=== PATIENT | female | born 1995 | race Caucasian/White ===

== ENCOUNTER → 2021-10-19 | Outpatient (CLI) | payer MEDICAID, SELFPAY ==
[2021-10-19 14:19] LABS: hCG Titer Quant., Serum 5620 mIU/mL (1-3)
== END | disposition home or self-care (01) ==
LOC: LAB 13:04
PROVIDERS: PCP Family Medicine; Referring Provider Obstetrics & Gynecology; Visit Provider Obstetrics & Gynecology
DX: N91.2 Amenorrhea, unspecified (principal)
CPT/HCPCS: 36415; 84702

== ENCOUNTER → 2021-10-23 | Outpatient (CLI) | payer MEDICAID, SELFPAY ==
--- NOTE | 2021-10-23 09:00 | US_ITS ---
STUDY: FIRST TRIMESTER OBSTETRICAL ULTRASOUND REASON FOR EXAM: Female, 26 years old dating -- HS OF MISCARRIAGE ON09/05 LMP: Unknown. TECHNIQUE: Transvaginal TECHNICAL QUALITY: Adequate. PRIOR ULTRASOUND: None. FINDINGS: There is visualization of a single gestational sac in a normal intrauterine position. The mean sac diameter (MSD) measures 1.42 cm, indicating an estimated gestational age (EGA) of 6 weeks, 2 days. The gestational sac shape is within normal limits. There is a visualized yolk sac. The yolk sac measures 2.9 mm. The placenta is non-visualized. There is visualization of a live embryo. The crown-rump length (CRL) measures 2.5 mm, indicating an estimated gestational age (EGA) of 6 weeks, 0 days. There is demonstrated cardiac activity with a heart rate of 102 bpm. The estimated gestation age (EGA) by US is 6 weeks, 1 days. The estimated date of delivery (SIENNA) by US is 06/17/2022. The uterus measures 9.2 cm x 6.2 cm x 4.4 cm. There is no demonstrated uterine fibroid. The cervix is closed. The right ovary measures 3.3 cm x 3.7 cm x 1.8 cm. There is no right ovarian cyst. There is no visualized right adnexal mass or complex lesion. The left ovary measures 3.4 cm x 2.69 x 1.6 cm. There is no left ovarian cyst. There is no visualized left adnexal mass or complex lesion. There is no fluid in the cul de sac. US/Transvaginal w/Preg US IMPRESSION: Single live intrauterine gestation with a mean gestational age of 6 weeks and 1 day. Electronically Signed: Dank Irizarry MD at 9:42 EDT ,
== END | disposition home or self-care (01) ==
LOC: OPUS 08:59
PROVIDERS: PCP Family Medicine; Visit Provider Obstetrics & Gynecology
DX: Z34.90 Encounter for supervision of normal pregnancy, unspecified, unspecified trimester (principal)
CPT/HCPCS: 76817

== ENCOUNTER → 2021-11-09 | Outpatient (CLI) | payer MEDICAID, SELFPAY ==
[2021-11-08 11:06] LABS: Amphetamine Urine VISTA NEGATIVE (<1000 ng/mL); Barbiturate Urine VISTA NEGATIVE (< 200 ng/mL); Benzodiazepine Urine VISTA NEGATIVE (< 200 ng/mL); Cocaine Urine VISTA NEGATIVE (< 300 ng/mL); Ecstacy Urine VISTA NEGATIVE (< 500 ng/mL); Methadone Urine VISTA NEGATIVE (< 300 ng/mL); PCP Urine VISTA NEGATIVE (< 25 ng/mL); THC Urine VISTA NEGATIVE (< 50 ng/mL); Vista UDS pH Range 6
[2021-11-10 00:06] LABS: Chlamydia By Nucleic Acid AMP Negative (Negative)
[2021-11-10 11:36] LABS: Gonococcus By Nucleic Acid AMP Negative (Negative)
== END | disposition home or self-care (01) ==
LOC: LABSPEC 09:28
PROVIDERS: PCP Family Medicine; Visit Provider Obstetrics & Gynecology
DX: Z34.90 Encounter for supervision of normal pregnancy, unspecified, unspecified trimester (principal)
CPT/HCPCS: 80307; 87086; 87088; 87491; 87591

== ENCOUNTER → 2021-11-16 | Outpatient (CLI) | payer MEDICAID, SELFPAY ==
[2021-11-16 10:35] LABS: Absolute Neutrophil Count 4.3 X10^3/uL (2.0-7.7); Basophil# 0.01 X10^3/uL; Basophil% 0.1 % (0-1); Eosinophil# 0.06 X10^3/uL; Eosinophils% 0.9 % (0-5); Hematocrit 34.3 % (37-47); Hemoglobin 11.7 g/dL (12.0-15.0); Lymphocyte % 32.8 % (19-41); Mean Corp Hgb Conc 34.1 g/dL (32-36); Mean Platelet Vol. 10.9 fl (6.2-12.0); Monocyte# 0.37 X10^3/uL; Monocyte% 5.3 % (0-10); NRBC Flagged by Analyzer 0 % (0-5); Neutrophil # 4.26 X10^3/uL (2.7-7.7); Neutrophil % 60.6 % (47-70); Platelet Count 239 K/mm3 (150-450); RBC Distribution Width CV 12.1 % (11.6-14.6); RBC Distribution Width SD 40.7 fl (35.1-43.9); Red Blood Count 3.77 M/mm3 (4.2-5.4)
[2021-11-16 11:09] LABS: NATERA MAILED SPECIMEN
[2021-11-16 11:39] LABS: HIV - WCH Non-Reactive (Nonreactive); Hepatitis B Surface Antigen Non-Reactive (Nonreactive); Hepatitis C Antibody Non-Reactive (Nonreactive); Rubella IgG Reactive (Nonreactive); Syphilis Antibodies Non-reactive
== END | disposition home or self-care (01) ==
LOC: LAB 09:58
PROVIDERS: PCP Family Medicine; Referring Provider Obstetrics & Gynecology; Visit Provider Obstetrics & Gynecology
DX: Z34.81 Encounter for supervision of other normal pregnancy, first trimester (principal)
CPT/HCPCS: 36415; 85025; 86703; 86762; 86780; 86803; 86850; 86900; 86901; 87340

== ENCOUNTER → 2022-03-29 | Outpatient (CLI) | payer MEDICAID, SELFPAY ==
[2022-03-29 09:25] LABS: Absolute Lymphocyte Count 2.59 X10^3/uL (0.83-4.51); Absolute Neutrophil Count 5.2 X10^3/uL (2.0-7.7); Basophil# 0.02 X10^3/uL; Basophil% 0.2 % (0-1); Eosinophil# 0.09 X10^3/uL; Eosinophils% 1.1 % (0-5); Hematocrit 35.3 % (37-47); Hemoglobin 11.6 g/dL (12.0-15.0); Lymphocyte # 2.59 X10^3/ul (0.83-4.51); Lymphocyte % 30.7 % (19-41); Mean Corp Hgb Conc 32.9 g/dL (32-36); Mean Corpuscular Hgb 31.1 pg (27.0-32.0); Mean Corpuscular Volume 94.6 fL (81-99); Mean Platelet Vol. 10.2 fl (6.2-12.0); Monocyte# 0.45 X10^3/uL; Monocyte% 5.3 % (0-10); NRBC Flagged by Analyzer 0 % (0-5); Neutrophil # 5.24 X10^3/uL (2.7-7.7); Neutrophil % 62.1 % (47-70); Platelet Count 267 K/mm3 (150-450); RBC Distribution Width SD 41.6 fl (35.1-43.9); Red Blood Count 3.73 M/mm3 (4.2-5.4); White Blood Count 8.4 K/mm3 (4.4-11.0)
[2022-03-29 09:53] LABS: Glucose Challenge Gest 1H 50g 106 mg/dL (70-140)
== END | disposition home or self-care (01) ==
LOC: LAB 09:02
PROVIDERS: Visit Provider Obstetrics & Gynecology
DX: O09.90 Supervision of high risk pregnancy, unspecified, unspecified trimester (principal)
CPT/HCPCS: 36415; 82950; 85025

== ENCOUNTER → 2022-04-25 | Outpatient (CLI) | payer MEDICAID, SELFPAY ==
--- NOTE | 2022-04-25 08:03 | US_ITS ---
STUDY: SECOND AND THIRD TRIMESTER OBSTETRICAL ULTRASOUND - LIMITED REASON FOR EXAM: Female, 27 years old growth LMP: 09/10/2021. PRIOR ULTRASOUND: Comparison made with prior study 10/23/2021. TECHNIQUE: Transabdominal TECHNICAL QUALITY: Adequate. FINDINGS: There is a single intrauterine fetus. The fetus is in a cephalic presentation. There is demonstrated cardiac activity with a heart rate of 152 bpm. There is a normal amniotic fluid volume. The largest amniotic fluid pocket measures 5.23 cm cm. The amniotic fluid index (DANIEL) is 15.1 cm. The placenta is anterior in location and is not low lying. There are Grade 1 placental changes. The cervix measures 3.9 cm in length. BIOMETRY: BPD: 7.95 cm: 31 weeks, 6 days HC: 29.55 cm: 32 weeks, 5 days AC: 27.51 cm: 31 weeks, 4 days FL: 6.07 cm: 31 weeks, 4 days Age by LMP: 32 weeks, 3 days. SIENNA by LMP: 06/17/2022. age by prior US: 32 weeks, 3 days. SIENNA by prior US: 06/17/2022 age by current US: 32 weeks, 1 days. SIENNA by current US: 06/19/2022. Estimated weight: 1824 grams, +/- 274 grams, 21 percentile. US/OB Limited With Biometrics IMPRESSION: Single live uterine gestation with mean gestational age of 32 weeks and 3 days. The measurements obtained today fall within the normal expected range. Electronically Signed: Dank Irizarry MD at 12:27 EST ,
== END | disposition home or self-care (01) ==
LOC: US 08:02
PROVIDERS: Visit Provider Obstetrics & Gynecology
DX: Z86.16 Personal history of COVID-19 (principal); Z3A.32 32 weeks gestation of pregnancy
CPT/HCPCS: 76816

== ENCOUNTER → 2022-05-20 | Outpatient (CLI) | payer MEDICAID, SELFPAY | END | disposition home or self-care (01) | PROVIDERS: Visit Provider Registered Nurse | DX: O09.90 Supervision of high risk pregnancy, unspecified, unspecified trimester (principal) | CPT/HCPCS: 87081 ==

== ENCOUNTER → 2022-05-27 | Outpatient (CLI) | payer MEDICAID, SELFPAY ==
--- NOTE | 2022-05-27 12:16 | US_ITS ---
STUDY: SECOND AND THIRD TRIMESTER OBSTETRICAL ULTRASOUND - LIMITED REASON FOR EXAM: Female, 27 years old growth -- 36 weeks -- COVID DURING LMP: 09/10/2021. PRIOR ULTRASOUND: Comparison is made with prior study 04/25/2022. TECHNIQUE: Transabdominal TECHNICAL QUALITY: Adequate. FINDINGS: There is a single intrauterine fetus. The fetus is in a cephalic presentation. There is demonstrated cardiac activity with a heart rate of 144 bpm. There is a normal amniotic fluid volume. The largest amniotic fluid pocket measures 4.9 cm x 2.9 cm. The amniotic fluid index (DANIEL) is 14.9 cm. The placenta is anterior in location and is not low lying. There are Grade 1 placental changes. The cervix measures 3.1 cm in length. BIOMETRY: BPD: 8.52 cm: 34 weeks, 2 days HC: 32 cm: 36 weeks, 0 days AC: 32.18 cm: 36 weeks, 1 days FL: 6.77 cm: 34 weeks, 5 days Age by LMP: 37 weeks, 0 days. SIENNA by LMP: 06/17/2022. age by prior US: 36 weeks, 5 days. SIENNA by prior US: 06/18/2022. age by current US: 35 weeks, 3 days. SIENNA by current US: 06/28/2022. Estimated weight: 2708 grams, +/- 406 grams, 21.3 percentile. US/OB Limited With Biometrics IMPRESSION: Single live uterine gestation with a mean gestational age of 36 weeks and 5 days. The measurements obtained today fall within the normal expected range. Electronically Signed: Dank Irizarry MD at 15:48 EST ,
== END | disposition home or self-care (01) ==
LOC: OPUS 12:14
PROVIDERS: Referring Provider Obstetrics & Gynecology; Visit Provider Obstetrics & Gynecology
DX: Z34.93 Encounter for supervision of normal pregnancy, unspecified, third trimester (principal); Z3A.36 36 weeks gestation of pregnancy; Z86.16 Personal history of COVID-19
CPT/HCPCS: 76816

== ENCOUNTER 2022-05-29 17:20 | Observation (INO) | payer MEDICAID, SELFPAY ==
[2022-05-29 16:59] VITALS: BP 115/73; PULSE 73; TEMP 36.8; O2SAT 98
[2022-05-29 17:05] VITALS: PULSE 74; O2SAT 97
[2022-05-29 17:15] VITALS: BMI 25.7
[2022-05-29] MEDS: Lactated Ringers 1,000 ML 50 ML IV (17:35)
[2022-05-29 17:57] LABS: Absolute Lymphocyte Count 2.72 X10^3/uL (0.83-4.51); Absolute Neutrophil Count 6.9 X10^3/uL (2.0-7.7); Basophil# 0.03 X10^3/uL; Basophil% 0.3 % (0-1); Eosinophil# 0.09 X10^3/uL; Eosinophils% 0.8 % (0-5); Hematocrit 34.9 % (37-47); Hemoglobin 12.1 g/dL (12.0-15.0); Lymphocyte # 2.72 X10^3/ul (0.83-4.51); Lymphocyte % 25.6 % (19-41); Mean Corp Hgb Conc 34.7 g/dL (32-36); Mean Corpuscular Hgb 31.3 pg (27.0-32.0); Mean Corpuscular Volume 90.2 fL (81-99); Mean Platelet Vol. 11.3 fl (6.2-12.0); Monocyte# 0.84 X10^3/uL; Monocyte% 7.9 % (0-10); NRBC Flagged by Analyzer 0 % (0-5); Neutrophil # 6.88 X10^3/uL (2.7-7.7); Neutrophil % 64.8 % (47-70); Platelet Count 247 K/mm3 (150-450); RBC Distribution Width CV 12.9 % (11.6-14.6); RBC Distribution Width SD 42.3 fl (35.1-43.9); Red Blood Count 3.87 M/mm3 (4.2-5.4); White Blood Count 10.6 K/mm3 (4.4-11.0)
[2022-05-29 18:27] LABS: Syphilis Antibodies Non-reactive
[2022-05-29 19:26] VITALS: BP 111/70; PULSE 72; TEMP 36.9
[2022-05-29 21:23] VITALS: BP 125/72; PULSE 74; TEMP 36.9
[2022-05-29 23:08] VITALS: BP 104/57; PULSE 80; TEMP 36.2; O2SAT 99
[2022-05-29] MEDS: LACTATED RINGERS 500 ML 999 ML IV (23:24)
[2022-05-30] VITALS (7 sets, daily range): BP systolic 94–107; BP diastolic 54–59; PULSE 61–84; TEMP 36.5; O2SAT 96–97
--- NOTE | 2022-05-30 02:48 | PN.OBGYN_ITS ---
Subjective Subjective Pt with painful contractions since 4pm yesterday. +fm, no lof, no vb. Objective Data Objective Data Vital Signs: Vital Signs Temp Pulse BP Pulse Ox 97.7 F L 74 106/59 L 96 05/30/22 02:08 05/30/22 02:08 05/30/22 02:08 05/30/22 02:08 Weight: 140 lb 6.951 oz Body Mass Index (BMI) 25.7 Intake & Output: Intake and Output for Last 24 Hours 05/28/22 05/29/22 05/30/22 23:59 23:59 23:59 Intake Total 790 / 790 Output Total 500 / 500 Balance 290 / 290 Lab / Micro Data Attestation: I reviewed the patient's lab results. Result Diagrams: 05/29/22 17:35 Labs: Laboratory Results - last 24 hr 05/29/22 17:35: WBC 10.6, RBC 3.87 L, Hgb 12.1, Hct 34.9 L, MCV 90.2, MCH 31.3, MCHC 34.7, RDW Std Deviation 42.3, RDW Coeff of Jaquan 12.9, Plt Count 247, MPV 11.3, Immature Gran % (Auto) 0.600, Neut % (Auto) 64.8, Lymph % (Auto) 25.6, Anderson % (Auto) 7.9, Eos % (Auto) 0.8, Baso % (Auto) 0.3, Absolute Neuts (auto) 6.9, Absolute Lymphs (auto) 2.72, Nucleated RBC % 0 05/29/22 17:35: Blood Type A POSITIVE, Antibody Screen NEGATIVE 05/29/22 17:35: Syphilis Total Ab Non-reactive ROS Cardiovascular Cardiovascular: Denies chest pain Respiratory/Chest Respiratory/Chest: Denies change in mental status Gastrointestinal Gastrointestinal: Denies diarrhea, nausea or vomiting Genitourinary Genitourinary: Denies change in urinary stream Musculoskeletal Musculoskeletal: Reports none Integumentary Integumentary: Reports none Neurologic Neurologic: Reports none Psychiatric Psychiatric: Reports none Endocrine Endocrinology: Reports none Hematologic/Lymphatic Hematologic/Lymphatic: Reports none Allergic/Immunologic Allergic/Immunologic: Reports none Physical Exam Const alert, oriented x3 and no apparent distress HEENT normocephalic Eyes PERRL Neck full ROM Resp normal respiratory effort, normal air movement, no retractions and no use of accessory muscles Effort and Inspection: able to speak in complete sentences GI soft to palpation Palpation: soft Manual OB Exam: presentation cephalic, dilated 4.5, effaced 90 and station -3 Uterus Palpation: Negative for uterus tender Amniotic Fluid: no amniotic fluid noted Extremity normal to inspection Neuro oriented x3 NST FHR Rate Baby A Variability:: Moderate Accelerations:: 15 x 15 Decelerations:: None NST Reactive:: Yes FHR Category:: Category I Uterine Activity:: q8-12minutes, Assessment Assessment Detail: strip reviewed with RN, reassuring status. ok for d/c home Assessment & Plan (1) Irregular contractions: COMMENT: without cervical change, not consistent with labor patterns. discussed at 37.3 without medical indications will not AROM or add pitocin for labor augmentation/induction. reviewed possibility of elective IOL after 39 weeks and expectant management currently. PLAN: d/c home with labor precautions maternal and status reassuring and stable for d/c (2) : QUALIFIERS: Weeks of gestation: 37 weeks Qualified Code(s): Z3A.37 - 37 weeks gestation of COMMENT: gbs neg. NIPT low risk, carrier negative , nl anatomy. 04/25 nl growth 21st%, 1824gms +/- 274gms. (3) Supervision of high risk , antepartum: COMMENT: PRR SIENNA 06/17/2022 surpise PC:Wes Teague Jace. Sp:Ho (4) Precipitous delivery: COMMENT: has been induced due to this in the past. would like 39 week IOL
== END 2022-05-30 03:10 | disposition home or self-care (01) ==
LOC: WPOUT 05-30 09:49 → WP 05-31 09:33
PROVIDERS: Admitting Provider Registered Nurse; Visit Provider Registered Nurse
DX: O47.1 False labor at or after 37 completed weeks of gestation (principal); Z34.93 Encounter for supervision of normal pregnancy, unspecified, third trimester; Z3A.36 36 weeks gestation of pregnancy; Z86.16 Personal history of COVID-19; Z3A.37 37 weeks gestation of pregnancy
CPT/HCPCS: 96360; 59025; 59050; 76816; 85025; 86780; 86850; 86900; 86901; 96372; 99218; 99221; J7120; G0378

== ENCOUNTER 2022-06-04 13:20 | Inpatient (IN) | payer MEDICAID, SELFPAY ==
[2022-06-04] VITALS (12 sets, daily range): BP systolic 99–135; BP diastolic 46–81; PULSE 53–69; RESP 14–16; TEMP 36.3–37.2; O2SAT 96–97; BMI 26.5
[2022-06-04 13:21] LABS: ROM Internal Control Test YES-OK TO RESULT pt. (Internal QC)
[2022-06-04 13:22] LABS: ROM Patient Test POSITIVE (Negative)
[2022-06-04] MEDS: Lactated Ringers 1,000 ML 200 ML IV (13:30)
[2022-06-04 13:50] LABS: Absolute Lymphocyte Count 2.69 X10^3/uL (0.83-4.51); Absolute Neutrophil Count 6.4 X10^3/uL (2.0-7.7); Basophil# 0.01 X10^3/uL; Basophil% 0.1 % (0-1); Eosinophil# 0.16 X10^3/uL; Eosinophils% 1.6 % (0-5); Hematocrit 34.3 % (37-47); Hemoglobin 11.4 g/dL (12.0-15.0); Lymphocyte # 2.69 X10^3/ul (0.83-4.51); Lymphocyte % 26.5 % (19-41); Mean Corp Hgb Conc 33.2 g/dL (32-36); Mean Corpuscular Hgb 30.2 pg (27.0-32.0); Mean Platelet Vol. 11.5 fl (6.2-12.0); Monocyte# 0.83 X10^3/uL; Monocyte% 8.2 % (0-10); NRBC Flagged by Analyzer 0 % (0-5); Neutrophil # 6.39 X10^3/uL (2.7-7.7); Platelet Count 234 K/mm3 (150-450); RBC Distribution Width CV 13.2 % (11.6-14.6); RBC Distribution Width SD 42.3 fl (35.1-43.9); Red Blood Count 3.77 M/mm3 (4.2-5.4); White Blood Count 10.1 K/mm3 (4.4-11.0)
[2022-06-04] MEDS: Naproxen 500 MG Tablet PO (13:59)
--- NOTE | 2022-06-04 16:25 | PCM.HP.OB ---
HPI - General General Date of Admission: 06/04/22 HPI Narrative BETHANIE GARCIA, is a 27 y/o who presents to L&D in active labor and has a history of precipitous delivery. She was found to be 6 cm and quickly changed to 9 cm within 10 minutes. Maternal Data Information SIENNA Calculator Estimated Delivery Date Method Current WG Current Estimate 06/17/22 Ultrasound #1 38w 1d PFSH PFSH Medical History Acute pharyngitis, unspecified Headache HPV (human papilloma virus) infection Home Medications ondansetron HCl 4 mg tablet 4 mg PO Q6H PRN nausea and vomiting 30 days #60 tabs 03/01/22 [Rx Last Taken Unknown] PNV 153-FA 400 mcg-om3 35 mg-dha 25 mg-epa 5 mg-fish oil chew tablet ( Gummies) 2 tab PO DAILY 05/29/22 [History Last Taken 05/29/22 04:30] aspirin 81 mg chewable tablet 81 mg PO DAILY 05/29/22 [History Last Taken 05/29/22 04:30] Allergy/AdvReac Type Severity Reaction Status Date / Time Penicillins Allergy Unknown unknown Verified 06/04/22 13:12 Family History Mother CVA (cerebral vascular accident) Hypertension Bipolar 1 disorder Social History adopted: No household members: spouse number of children: 3 current occupational status: unemployed current occupation: [employer] pets and animals: Yes pets and animals: dog(s) Smoking Status: Never smoker alcohol intake: never substance use type: does not use caffeine: No do you feel safe at home: Yes additional social history: Ho History 6 Elective abortions Hx Para 3 Spontaneous abortions 2 Hx # Term Pregnancies Ectopic pregnancies Hx # Pregnancies Multiple births # of living children 3 Past Pregnancies Del. Date Name GA/Weeks Outcome Route Bth Weight Gen Labor Lgth Anesthesia Del Locatn Provider FOB Unknown 08/07/15 Ho 38 live - full term vacuum 7# 6oz Male <1 hour Lenka Teague Unknown 05/01/18 Wes 39 live - full term 7# 6oz Male 2 hours other Corwin Teague Unknown 08/16/19 Constantin live - full term 8# 4oz Male 2 hr other Corwin Teague Unknown SAB 05/24/2021 Unknown SAB 09/05/21 Delivery Date: Last Updated by: Albania Holley NP INSURANCE VERIFY REP-Julio Rapid delivery. Delivery Date: Last Updated by: Albania Holley NP, NP-Julio Nitrous. IOL. Delivery Date: Last Updated by: Albania Holley NP, NP-Julio IOL Delivery Date: Last Updated by: Albania Holley NP, NP-Julio Took methotrexate Delivery Date: Last Updated by: Albania Holley NP, NP-Julio no intervention Visit Details Expected Delivery Route/Plan Labor Preferences- CB/BF classes: no labor support person: Ho labor intervention preferences: limited pain management options preferred: nitrous cut cord/dad catch: yes : yes PP control planned: BS discussed possible routes of delivery and associated risks: [] special requests: [] Plans Covid status: + Feb 2022 Flu vaccine: declines Tdap vaccine: given Rhogam: na LARC form signed: yes Problem list reviewed and updated with the most current plan of care details and appropriate orders placed. Relevant counseling for the gestational age provided. Continue routine care and follow up unless otherwise noted in visit notes/problem list details OB Flowsheet Initial Weight: 121 lb Date <del>?</del> EGA Weight BP Urine Prot <del>?</del> Glucose FHR FuHt Pres Dilation <del>?</del> Effaced St Visit Note 11/08/21 <del>?</del> 8w 3d 121 lb (+0 oz) 94/60 <del>?</del> 150 <del>?</del> SM- CRL cons with LMP SM- CRL 1.48cm 12/06/21 <del>?</del> 12w 3d 119 lb (-2 lb) 90/60 Trace <del>?</del> Negative <del>?</del> JV- handheld bedside ultrasound detected heart beat. No complaints today. sarah hamlin. anatomy scan ordered, 01/03/22 <del>?</del> 16w 3d 118 lb 6 oz (-2 lb 10 oz) 100/60 Trace <del>?</del> Negative 130 <del>?</del> JV- pt still vomiting often. interested in home health nurse for sarah 02/01/22 <del>?</del> 20w 4d 124 lb (+3 lb) 99/66 Negative <del>?</del> Negative 145 <del>?</del> SM- no vb lof cramping nausea improving. 03/01/22 <del>?</del> 24w 4d 128 lb (+7 lb) 100/62 Negative <del>?</del> Negative 145 24 23 <del>?</del> SM- no vb lof cramping desires sterilization 03/29/22 <del>?</del> 28w 4d 133 lb (+12 lb) 102/68 Negative <del>?</del> Negative 145 29 <del>?</del> SM- no vb lof good fm overall no regular ctx tital 19 signed 04/12/22 <del>?</del> 30w 4d 135 lb 8 oz (+14 lb 8 oz) 117/72 Negative <del>?</del> Negative 169 30 <del>?</del> JV- no lof, vaginal bleeding, or dec fm. pt had covid last month. Starting baby asa and otaining growth scan for next week and 36 weeks 04/25/22 <del>?</del> 32w 3d 135 lb 6 oz (+14 lb 6 oz) 116/72 Negative <del>?</del> Negative 138 31 <del>?</del> MH-NO VB, LOF. Good FM. More RL pain. Larc. 05/06/22 <del>?</del> 34w 0d 139 lb 8 oz (+18 lb 8 oz) 111/76 Negative <del>?</del> Negative 145 33 <del>?</del> LC-no vb,lof,ctx. good fm. no concerns. will repeat growth scan in 2 weeks. 21% for growth at 32 weeks. 05/20/22 <del>?</del> 36w 0d 140 lb 2 oz (+19 lb 2 oz) 124/84 Negative <del>?</del> Negative 110 32 0 <del>?</del> 20 -3 LC- no vb. occ ctx, not consistent. dec FM. has growth scan ordered. NST will be obtained in office today. GBS obtained today 05/27/22 <del>?</del> 37w 0d 141 lb 2 oz (+20 lb 2 oz) 120/80 Negative <del>?</del> Negative 140 34 2 <del>?</del> 50 -2 LC- dec FM. obtaining NST. has growth scan scheduled this afternoon. no lof, vb. inconsistent ctx. ROS Constitutional Constitutional: Denies change in weight, fatigue, fever(s), headache(s), poor appetite or weakness Eyes Eyes: Denies blurry vision, change in vision, seeing flashes or spots in vision ENT HEENT: Denies dizziness, headache(s), loss taste/smell or sore throat Cardiovascular Cardiovascular: Denies chest pain, dizziness, dyspnea, irregular heart rhythm, leg edema, palpitations, rapid heart rate or vomiting Respiratory/Chest Respiratory/Chest: Denies chest tightness, cough, dyspnea or breast pain Gastrointestinal Gastrointestinal: Denies abdominal pain, anorexia, constipation, cramping, diarrhea, hemorrhoids, vomiting or weight changes Genitourinary Genitourinary: Denies dysuria, flank pain, genital lesions, genital pain, urinary frequency or urinary urgency Musculoskeletal Musculoskeletal: Denies back pain, difficulty walking, joint pain, limited range of motion, muscle cramps or numbness Integumentary Integumentary: Denies lesions or unusual bruising Neurologic Neurologic: Denies abnormal movements, abnormal speech, dizziness, numbness, seizure-like activity or syncope Psychiatric Psychiatric: Denies anxiety, behavioral changes, change in appetite, change in libido, cognitive impairment, confusion, depression, difficulty concentrating, hallucinations or suicidal thoughts Endocrine Endocrinology: Denies excessive sweating, polydipsia or polyuria Hematologic/Lymphatic Hematologic/Lymphatic: Denies easy bleeding, easy bruising or lymphadenopathy Allergic/Immunologic Allergic/Immunologic: Denies itchy eyes, lip swelling, seasonal rhinorrhea, rhinitis, throat swelling, tongue swelling, eczemia, wheezing or asthma Vital Signs Vital Signs Vital Signs: 06/04/22 13:10 06/04/22 13:10 06/04/22 13:10 Temperature Temperature Source Pulse Rate 68 68 Blood Pressure BP Systolic BP Diastolic Pulse Ox 96 06/04/22 13:10 06/04/22 13:10 06/04/22 13:47 Temperature 98.6 F Temperature Source Pulse Rate Blood Pressure 135/64 H BP Systolic 135 BP Diastolic 64 Pulse Ox 96 06/04/22 13:47 06/04/22 13:47 06/04/22 13:47 Temperature 98.3 F Temperature Source Temporal Pulse Rate 67 Blood Pressure BP Systolic BP Diastolic Pulse Ox 06/04/22 14:02 06/04/22 14:02 06/04/22 14:17 Temperature Temperature Source Pulse Rate 67 Blood Pressure 123/60 H 120/62 BP Systolic 123 120 BP Diastolic 60 62 Pulse Ox 06/04/22 14:17 06/04/22 14:17 06/04/22 14:17 Temperature 98.0 F Temperature Source Temporal Pulse Rate 65 Blood Pressure BP Systolic BP Diastolic Pulse Ox 06/04/22 14:32 06/04/22 14:32 06/04/22 14:32 Temperature Temperature Source Temporal Pulse Rate 57 L Blood Pressure 123/70 H BP Systolic 123 BP Diastolic 70 Pulse Ox 06/04/22 14:32 06/04/22 14:47 06/04/22 14:47 Temperature 98.3 F Temperature Source Pulse Rate 54 L Blood Pressure 127/81 H BP Systolic 127 BP Diastolic 81 Pulse Ox 06/04/22 15:02 06/04/22 15:02 06/04/22 14:47 Temperature Temperature Source Temporal Pulse Rate 62 Blood Pressure 120/72 BP Systolic 120 BP Diastolic 72 Pulse Ox 06/04/22 14:47 06/04/22 15:17 06/04/22 15:17 Temperature 98.9 F Temperature Source Pulse Rate 56 L Blood Pressure 123/65 H BP Systolic 123 BP Diastolic 65 Pulse Ox 06/04/22 15:32 06/04/22 15:32 06/04/22 15:32 Temperature Temperature Source Temporal Pulse Rate 57 L Blood Pressure 130/71 H BP Systolic 130 BP Diastolic 71 Pulse Ox 06/04/22 15:32 06/04/22 15:47 06/04/22 15:47 Temperature 98.5 F Temperature Source Pulse Rate 69 Blood Pressure 124/68 H BP Systolic 124 BP Diastolic 68 Pulse Ox 06/04/22 15:47 06/04/22 15:47 Temperature 98.5 F Temperature Source Temporal Pulse Rate Blood Pressure BP Systolic BP Diastolic Pulse Ox Weight Weight: 145 lb Body Mass Index (BMI) 26.5 Physical Exam Const alert, oriented x3, no apparent distress and healthy appearing General Appearance: cooperative; Negative for anxious HEENT normocephalic Face and Sinus: normal facial exam Eyes EOMs intact bilaterally and no scleral icterus General Eye: normal appearance of both eyes Neck full ROM and supple Lymph Lymphatic: no lymphadenopathy noted Chest Chest: abnormal inspection of the chest Resp normal respiratory effort Effort and Inspection: able to speak in complete sentences Cardio regular rate GI soft to palpation and non-tender Inspection: gravid Palpation: soft; Negative for tender external exam normal Amniotic Fluid: ROM+plus Back/Spine no CVA tenderness Extremity normal to inspection, full ROM and no clubbing, cyanosis or edema General Extremity: Negative for calf tenderness or edema Skin Lesions: no lesions Rashes: no rashes Psych mental status grossly normal Labs Labs Labs: Blood Type A POSITIVE Antibody Screen NEGATIVE Hct 34.3 % (37-47) L Hgb 11.4 g/dL (12.0-15.0) L Pap Smear Positive Obstetrics US Syphilis Total Ab Non-reactive Rubella IgG Antibody Reactive (Nonreactive) Hep Bs Antigen Non-Reactive (Nonreactive) Chlamydia DNA (BERNARD) Negative (Negative) Neisseria gonorrhoeae DNA (BERNARD) Negative (Negative) HIV 1&2 Antibody Non-Reactive (Nonreactive) Glucose 1 Hr 50 gm 106 mg/dL (70-140) Rhogam given: No Assessment & Plan (1) : QUALIFIERS: Weeks of gestation: 37 weeks Qualified Code(s): Z3A.37 - 37 weeks gestation of COMMENT: gbs neg. NIPT low risk, carrier negative , nl anatomy. 04/25 nl growth 21st%, 1824gms +/- 274gms. (2) Supervision of high risk , antepartum: COMMENT: PRR SIENNA 06/17/2022 surpise PC:Wes Teague Jace. Sp:Ho (3) History of HPV infection: COMMENT: on pap 05/2021 [place]. repeat PAP PP (4) Precipitous delivery: COMMENT: has been induced due to this in the past. would like 39 week IOL (5) Sterilization: COMMENT: 03/29- title 19 (6) History of 2019 novel coronavirus disease (COVID-19): COMMENT: 02/14/22 starting baby asa and ordering growths at 32 and 36 weeks PLAN: Plan Patient presents IAL, plan expectant management for , Pain management: plans epidural, however due to how quickly she is moving there will not be time for this GBS negative . Management of any complications: none I have reviewed the [facility] and made any clinically relevant updates.
--- NOTE | 2022-06-04 16:27 | EX.PCM.OBRPT ---
Assessment & Plan (1) : QUALIFIERS: Weeks of gestation: 37 weeks Qualified Code(s): Z3A.37 - 37 weeks gestation of COMMENT: gbs neg. NIPT low risk, carrier negative , nl anatomy. 04/25 nl growth 21st%, 1824gms +/- 274gms. (2) Supervision of high risk , antepartum: COMMENT: PRR SIENNA 06/17/2022 surpise PC:Wes Teague Jace. Sp:Ho (3) History of HPV infection: COMMENT: on pap 05/2021 [place]. repeat PAP PP (4) Precipitous delivery: COMMENT: has been induced due to this in the past. would like 39 week IOL (5) Sterilization: COMMENT: 03/29- title 19 (6) History of 2019 novel coronavirus disease (COVID-19): COMMENT: 02/14/22 starting baby asa and ordering growths at 32 and 36 weeks Maternal Data Information SIENNA Calculator Estimated Delivery Date Method Current WG Current Estimate 06/17/22 Ultrasound #1 38w 1d Final SIENNA: 06/17/22 Final SIENNA Source: US <20 weeks Gestational age: 38 weeks 1 day Vaginal Delivery Maternal Presentation Maternal Presentation: Active Labor Operative Information Date of Procedure: 06/04/22 Pre-Operative Diagnosis: @ 38 weeks 1 day, active labor Post-Operative Diagnosis: @ 38 weeks 1 day, active labor Surgery / Procedure Performed: Spontaneous Vaginal Delivery Type of Anesthesia: None Estimated Blood Loss: 50cc Findings Description of Procedure: Patient began pushing and delivered the head in the OA presentation with both hands entangled with cord. The head was delivered atraumatically The anterior and posterior shoulders delivered without complication followed by the rest of the infant and the was placed on the maternal abdomen. Delayed cord clamping was employed for approximately 60 seconds. Cord was clamped and cut and gentle traction was applied to the cord, however the cord came loose from the placenta and a manual extraction of the placenta quickly took place with minimal attempt. The perineum and vagina were inspected and noted to have no laceration. EBL was 50cc. Patient and tolerated delivery well. Presentation: Vertex Amniotic Fluid Description: Clear Placental Delivery Description: Manual Removal Placenta Disposition: [facility] Cord Vessel Description: 3 Vessels Cord Entanglement: None A Gender: Female (1 minute): 8 (5 minute): 9 Delayed Cord Clamping: Yes Post Vaginal Delivery Medications Given After Delivery: - (IM pitocin) Episiotomy Description: None Laceration: None Complication Complications: None Multi Select Codes Urinary/Genital Urinary/Genital CPT Codes: 21437 Vaginal Delivery+ PP Care([facility])
[2022-06-05 00:07] VITALS: BP 105/55; PULSE 59
[2022-06-05 04:33] VITALS: BP 116/71; PULSE 60; RESP 16; TEMP 36.3; O2SAT 97
[2022-06-05 08:05] VITALS: BP 112/73; PULSE 61; RESP 16; TEMP 36.2; O2SAT 96
--- NOTE | 2022-06-05 08:08 | PCM.PN.OB ---
Subjective Subjective Patient doing well without complaints. Tolerating PO. Ambulating and voiding without difficulty. Feeding well. Denies chest pain, shortness of breath, calf pain/swelling, fevers, chills, lightheadedness. Objective Data Objective Data Vital Signs: Vital Signs Temp Pulse Resp BP Pulse Ox O2 Del Method 97.4 F L 60 16 116/71 97 Room Air 06/05/22 04:33 06/05/22 04:33 06/05/22 04:33 06/05/22 04:33 06/05/22 04:33 06/05/22 04:33 Oxygen Delivery Method Room Air Weight: 145 lb Body Mass Index (BMI) 26.5 Intake & Output: Intake and Output for Last 24 Hours 06/03/22 06/04/22 06/05/22 23:59 23:59 23:59 Intake Total 266.67 / 266.67 Output Total 150 / 150 Balance 116.67 / 116.67 Lab / Micro Data Attestation: I reviewed the patient's lab results. Result Diagrams: 06/04/22 13:31 Labs: Laboratory Results - last 24 hr 06/04/22 13:10: Vag Amniotic Fld Detect POSITIVE H 06/04/22 13:31: WBC 10.1, RBC 3.77 L, Hgb 11.4 L, Hct 34.3 L, MCV 91.0, MCH 30.2, MCHC 33.2, RDW Std Deviation 42.3, RDW Coeff of Jaquan 13.2, Plt Count 234, MPV 11.5, Immature Gran % (Auto) 0.600, Neut % (Auto) 63.0, Lymph % (Auto) 26.5, Kings % (Auto) 8.2, Eos % (Auto) 1.6, Baso % (Auto) 0.1, Absolute Neuts (auto) 6.4, Absolute Lymphs (auto) 2.69, Nucleated RBC % 0 06/04/22 13:31: Blood Type A POSITIVE, Antibody Screen NEGATIVE Physical Exam Const alert, oriented x3 and no apparent distress General Appearance: cooperative and comfortable HEENT normocephalic Eyes PERRL Lymph Lymphatic: no lymphadenopathy noted Chest inspection of chest normal Resp normal respiratory effort, normal air movement, no retractions and no use of accessory muscles Cardio regular rate GI GI Narrative: fundus firm at U, mild lochia rubra, no clots. abdomen soft/nt/nd Back/Spine normal ROM Extremity normal to inspection and full ROM General Extremity: normal exam except as noted Skin no rashes or lesions noted Psych mental status grossly normal and thought process normal Appearance: grossly normal Assessment & Plan (1) (spontaneous vaginal delivery): COMMENT: 38weeks, precip, girl. JV PLAN: s/p PPD # 1 1. routine post delivery care 2. breast feeding- support given 3. rh positive 4. rubella immune 5. d/c home today
[2022-06-05 12:40] VITALS: BP 106/65; PULSE 79; RESP 15; TEMP 36.7
[2022-06-05 15:57] VITALS: BP 120/68; PULSE 66; RESP 15; TEMP 36.8
== END 2022-06-05 16:23 | disposition home or self-care (01) | DRG 560 ==
LOC: WPOUT 13:25 → WP 13:26
PROVIDERS: Admitting Provider Obstetrics & Gynecology; Referring Provider Obstetrics & Gynecology; Visit Provider Obstetrics & Gynecology
DX: O62.3 Precipitate labor (principal); Z37.0 Single live birth; O69.82X0 Labor and delivery complicated by other cord entanglement, without compression, not applicable or unspecified; Z3A.38 38 weeks gestation of pregnancy; Z79.82 Long term (current) use of aspirin; Z79.899 Other long term (current) drug therapy; Z86.16 Personal history of COVID-19
CPT/HCPCS: 59025; 59050; 84112; 85025; 86850; 86900; 86901; 99218; J7120; G0378

== ENCOUNTER → 2022-09-09 | Outpatient (CLI) | payer MEDICAID, SELFPAY ==
[2022-09-17 12:23] LABS: HPV Reflexed? NOT INDICATED
== END | disposition home or self-care (01) ==
LOC: LABSPEC 15:02
PROVIDERS: Referring Provider Registered Nurse; Visit Provider Registered Nurse
DX: Z12.4 Encounter for screening for malignant neoplasm of cervix (principal)
CPT/HCPCS: 88175; G0145